=== PATIENT | female | born 1995 | race Caucasian/White ===

== ENCOUNTER 2017-03-18 14:39 | Emergency (ER) | payer BC ==
--- NOTE | 2017-03-18 15:50 | ED NURSING NOTES ---
Clinical Report - Nurses [facility] [address] [place] [address] 03/18/2017 14:42 Patient: PATRICK TERRY TRIAGE Triage time 14:50 Mar 18 2017. Acuity: LEVEL 3. Chief Complaint: (pt reports "getting my migraine at 0900" including n/v). Alert. SEPSIS SCREEN: Sepsis Screen. Negative (no infection suspected/documented). --14:54 Duong Rayo R.N. 14:50 03/18/17. BP: 130/65. HR: 67. RR: 15. O2 saturation: 100%. Temp: 97.7 F. Pain level now: 06/08. --14:54 Duong Rayo R.N. Weight: 64.4 kg stated. Height/Length: 66 inches Per Patient. BMI: 22.9. --14:53 Duong Rayo R.N. Medications Ocella Oral. --14:51 Duong Rayo R.N. Medication/allergy information source: the patient. --14:54 Duong Rayo R.N. Allergies None. --14:52 Duong Rayo R.N. History Arrived by private vehicle. Historian: patient. Accompanied by family. This started today. Onset. (0900). She has had nausea and vomiting. 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 PAST MEDICAL HX: Immunizations: up-to-date. Last normal menstrual period- March 04 2017. SOCIAL HX: Never smoker. Occasional alcohol use; consumes beer occasionally. No drug use. She has had contact with a sick individual. No infectious disease exposure. ABUSE ASSESSMENT: No report of abuse. SELF HARM ASSESSMENT: A self harm assessment was performed. The patient answered "no" to the question "Do you have thoughts of harming or killing yourself?". FALL RISK ASSESSMENT: Fall risk assessment completed. No fall risk identified. NUTRITIONAL RISK ASSESSMENT: The nutritional risk assessment revealed no deficiencies. FUNCTIONAL ASSESSMENT: Functional assessment: no impairments noted. LEARNING NEEDS ASSESSMENT: The learning needs assessment revealed no barriers. --14:54 Duong Rayo R.N. PROBLEMS: Migraine Headache. --14:52 Duong Rayo R.N. ADDITIONAL SURGERIES: Tonsillectomy. --14:52 Duong Rayo R.N. Interventions ID band on patient. To treatment room. --14:54 Duong Rayo R.N. PHYSICAL ASSESSMENT Ambulatory to room. Patient gowned. GENERAL / NEURO / PSYCH: Alert. Oriented X 4. Appears in pain. HEENT: Mucous membranes are pink. RESPIRATORY: Respirations not labored. CVS: Capillary refill less than 2 seconds. SKIN: Skin is warm and dry. --14:54 Duong Rayo R.N. NURSING PROGRESS NOTES Monitoring of patient in place. Patient gowned. Reassurance given. Patient identifiers checked. Call light placed in reach. Side rails up. Bed placed in lowest position. Brakes of bed on. Patient ready for evaluation- chart flagged. Patient waiting for evaluation. --14:55 Duong Rayo R.N. 15:10 03/18/2017 Site #1 started via IV in the right antecubital space with an 22g angiocath, with aseptic technique and good blood return; one attempt. Blood drawn: rainbow set. Labeled in the presence of the patient and sent to the lab. Saline lock flushed with 10 mL saline. --15:10 Sheriff Chavez R.N. 15:16 03/18/2017 Toradol IVP 30 mg given. via site #1. Allergies verified and confirmed 5 rights. IV patency established. IV site checked: no pain, redness, or swelling. IV flushed thoroughly pre- and post-medication administration. IVP given by RN. --15:26 Duong Rayo R.N. 15:16 03/18/2017 Reglan (Metoclopramide HCl) IVP 10 mg given. via site #1. Allergies verified and confirmed 5 rights. IV patency established. IV site checked: no pain, redness, or swelling. IV flushed thoroughly pre- and post-medication administration. IVP given by RN. --15:26 Duong Rayo R.N. 15:17 03/18/2017 Benadryl (DiphenhydrAMINE HCl) IVP 25 mg given. via site #1. Allergies verified, confirmed 5 rights and sedative warning given to the patient and patient's family. IV patency established. IV site checked: no pain, redness, or swelling. IV flushed thoroughly pre- and post-medication administration. IVP given by RN. --15:27 Duong Rayo R.N. DISPOSITION / DISCHARGE 16:16 03/18/17. Departure time: 1610. Condition at departure: improved and stable. No learning barriers present. Discharge instructions provided and reviewed with the patient and spouse. Reviewed medication(s) side effects, precautions, dosing and course information. Work note given. Patient verbalized understanding. Written instructions provided in Swedish. The patient was discharged by the nurse practitioner. She was discharged home and accompanied by spouse. She left the Emergency Department ambulatory and via private vehicle. Spouse driving. --16:16 Roya Martinez R.N. 16:14 03/18/17. BP: 104/68. HR: 81. RR: 14. O2 saturation: 100% on room air. Temp: 98.2 F (oral). Pain level now 2/10. --16:16 Roya Martinez R.N. Locked/Released at 03/18/2017 20:54 by Duong Rayo R.N.
--- NOTE | 2017-03-18 15:50 | ED CLINICAL REPORT ---
Clinical Report - Physicians/Mid Levels [facility] [address] [place] [address] 03/18/2017 14:42 [id number] Time Seen: 14:54; initial patient contact, initial documentation, patient care assumed. Arrived- By private vehicle. Historian- patient. HISTORY OF PRESENT ILLNESS Chief Complaint: HEADACHE and MIGRAINE HEADACHE. Is still present. This started today. It was abrupt in onset and has been constant. It is described as similar to previous headaches, "pain" and diffuse. Described as a global headache. Located in the frontal, left hemicranial, left parietal and left temporal region and region of the left eye. Located in the facial region. No neck pain. At its maximum, severity described as severe. When seen in the E.D., severity described as severe. Modifying factors: relieved by nothing. Not worsened by anything. The patient has had nausea and vomiting. The vomiting has occurred twice. No preceding symptoms, blurred vision, photophobia, numbness or weakness. No recent travel. Similar symptoms previously: Occasionally, as bad. Recent medical care: Not recently seen/assessed. REVIEW OF SYSTEMS No fever, sinus pressure, ear pain, sore throat or head injury. No chest pain, difficulty breathing or abdominal pain. All systems otherwise negative, except as recorded above. PAST HISTORY See nurses notes. PROBLEMS: Migraine Headache. --14:52 Duong Rayo, RAlyssaN. ADDITIONAL SURGERIES: Tonsillectomy. --14:52 Duong Rayo, R.Monserrat. SOCIAL HISTORY Never smoker. Occasional alcohol use. No drug use. No recent travel. Is a local resident. FAMILY HISTORY Negative. ADDITIONAL NOTES The nursing notes have been reviewed with agreement regarding the chief complaint, HPI, ROS, PMH and patient medications and allergies. PHYSICAL EXAM Vital Signs: 03/18/2017 14:50 BP: 130/65. HR: 67. RR: 15. O2 saturation: 100%. Temp: 97.7 F. Pain level now: 9/10. Have been reviewed as normal and appear to be correct. Appearance: Alert. No acute distress. Eyes: Pupils equal, round and reactive to light. Eyes normal inspection. ENT: Ears normal. Nose normal. Pharynx normal. Neck: Normal inspection. Neck supple. CVS: Normal heart rate and rhythm. Heart sounds normal. Pulses normal. Respiratory: No respiratory distress. Breath sounds normal. Abdomen: Soft and nontender. No organomegaly. Back: Normal inspection. Skin: Skin warm and dry. Normal skin color. No rash. Normal skin turgor. Extremities: Extremities exhibit normal ROM. No lower extremity edema. Neuro: Oriented X 3. Alert. Mood/affect normal. Speech normal. Cranial nerves normal (as tested). No cerebellar findings. No motor deficit. No sensory deficit. PROGRESS AND PROCEDURES Course of Care: 03/18/2017 16:14 BP: 104/68. HR: 81. RR: 14. O2 saturation: 100%. Temp: 98.2 F. Vital Signs: have been reviewed as normal and appear to be correct. Patient counseled in person regarding the patient's stable condition and diagnosis. Differential Diagnosis: I considered migraine, cluster headache, subarachnoid hemorrhage, intracranial bleed, vascular malformation, cerebral aneurysm, vascular dissection, vasculitis, temporal arteritis, encephalitis, brain abscess, influenza, viral syndrome, analgesic abuse, hypoglycemia and trigeminal neuralgia as a possible cause of headache in this patient. This is a partial list of diagnoses considered. Above considerations are based on history and reassessment. Differential diagnosis was discussed with patient. Disposition: Discharged home in good and improved condition (15:50). Condition: good and stable. CLINICAL IMPRESSION Acute migraine headache without aura- refractory to treatment. INSTRUCTIONS Warnings: GENERAL WARNINGS: Return or contact your physician immediately if your condition worsens or changes unexpectedly, if not improving as expected, or if other problems arise. SPECIFICALLY, return if you develop fever, vomiting, numbness, weakness, difficulty thinking, visual disturbances, fainting or extreme fatigue. Prescription Medications: Zofran 4 mg: Take 1 orally every six hours as needed for nausea/vomiting. Dispense ten (10). No refills. Substitution is permissible. Fioricet: Take 1-2 orally every 4 hours as needed for headache. Dispense twenty (20). No refills. Substitution is permissible. Follow-up: Follow up with your doctor in about two days even if well. Summary of care provided to patient. Understanding of the discharge instructions verbalized by patient. (Electronically signed by Jenna Flores A.R.N.P. 03/18/2017 22:05) Addenda for PATRICK TERRY VisitID: [id number] Date: 03/18/2017 03/18/2017 16:59 [facility], called in below RX per request RX for Zofran one PO every 6 hours prn #10 Fioricet, 1-2 every 4 hours as need for headache, #20 (Electronically signed by Kristopher Juarez R.N. - 03/18/2017 16:59)
--- NOTE | 2017-03-18 15:50 | ED ORDER SUMMARY ---
..... Patient: PATRICK TERRY OrderSheet [facility] VisitID: [id number] [place] [address] 22y, F Registration Date/Time: 03/18/2017 ORDER SHEET Weight: 64.4 kg (stated) Allergies: None GENERAL ORDERS: MEDICATION ORDERS: IV FLUIDS: Toradol IV 30 mg (NOW) (15:03/18/2017 HBivens A.R.N.P.) (15:26 KPage-Kuchan R.N.) Reglan IV 10 mg (NOW) (15:03/18/2017 HBivens A.R.N.P.) (15:26 KPage-Kuchan R.N.) Benadryl IV 25 mg (NOW) (15:03/18/2017 HBivens A.R.N.P.) (15:27 KPage-Kuchan R.N.) IV Saline Lock (15:03/18/2017 HBivens A.R.N.P.) (15:26 KPage-Kuchan R.N.) ORDER SHEET NOTES: [Electronically signed by Duong Rayo R.N. (20:54 03/18/2017)] [Electronically signed by Jenna Flores A.R.N.P. (22:05 03/18/2017)] [Electronically locked/signed by Duong Rayo R.N. (20:54 03/18/2017)]
--- NOTE | 2017-03-18 15:50 | ED NURSING NOTES ---
Clinical Report - Nurses [facility] [address] [place] [address] 03/18/2017 14:42 Patient: PATRICK TERRY TRIAGE Triage time 14:50 Mar 18 2017. Acuity: LEVEL 3. Chief Complaint: (pt reports "getting my migraine at 0900" including n/v). Alert. SEPSIS SCREEN: Sepsis Screen. Negative (no infection suspected/documented). --14:54 Duong Rayo R.N. 14:50 03/18/17. BP: 130/65. HR: 67. RR: 15. O2 saturation: 100%. Temp: 97.7 F. Pain level now: 06/08. --14:54 Duong Rayo R.N. Weight: 64.4 kg stated. Height/Length: 66 inches Per Patient. BMI: 22.9. --14:53 Duong Rayo R.N. Medications Ocella Oral. --14:51 Duong Rayo R.N. Medication/allergy information source: the patient. --14:54 Duong Rayo R.N. Allergies None. --14:52 Duong Rayo R.N. History Arrived by private vehicle. Historian: patient. Accompanied by family. This started today. Onset. (0900). She has had nausea and vomiting. 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 PAST MEDICAL HX: Immunizations: up-to-date. Last normal menstrual period- March 04 2017. SOCIAL HX: Never smoker. Occasional alcohol use; consumes beer occasionally. No drug use. She has had contact with a sick individual. No infectious disease exposure. ABUSE ASSESSMENT: No report of abuse. SELF HARM ASSESSMENT: A self harm assessment was performed. The patient answered "no" to the question "Do you have thoughts of harming or killing yourself?". FALL RISK ASSESSMENT: Fall risk assessment completed. No fall risk identified. NUTRITIONAL RISK ASSESSMENT: The nutritional risk assessment revealed no deficiencies. FUNCTIONAL ASSESSMENT: Functional assessment: no impairments noted. LEARNING NEEDS ASSESSMENT: The learning needs assessment revealed no barriers. --14:54 Duong Rayo R.N. PROBLEMS: Migraine Headache. --14:52 Duong Rayo R.N. ADDITIONAL SURGERIES: Tonsillectomy. --14:52 Duong Rayo R.N. Interventions ID band on patient. To treatment room. --14:54 Duong Rayo R.N. PHYSICAL ASSESSMENT Ambulatory to room. Patient gowned. GENERAL / NEURO / PSYCH: Alert. Oriented X 4. Appears in pain. HEENT: Mucous membranes are pink. RESPIRATORY: Respirations not labored. CVS: Capillary refill less than 2 seconds. SKIN: Skin is warm and dry. --14:54 Duong Rayo R.N. NURSING PROGRESS NOTES Monitoring of patient in place. Patient gowned. Reassurance given. Patient identifiers checked. Call light placed in reach. Side rails up. Bed placed in lowest position. Brakes of bed on. Patient ready for evaluation- chart flagged. Patient waiting for evaluation. --14:55 Duong Rayo R.N. 15:10 03/18/2017 Site #1 started via IV in the right antecubital space with an 22g angiocath, with aseptic technique and good blood return; one attempt. Blood drawn: rainbow set. Labeled in the presence of the patient and sent to the lab. Saline lock flushed with 10 mL saline. --15:10 Sheriff Chavez R.N. 15:16 03/18/2017 Toradol IVP 30 mg given. via site #1. Allergies verified and confirmed 5 rights. IV patency established. IV site checked: no pain, redness, or swelling. IV flushed thoroughly pre- and post-medication administration. IVP given by RN. --15:26 Duong Rayo R.N. 15:16 03/18/2017 Reglan (Metoclopramide HCl) IVP 10 mg given. via site #1. Allergies verified and confirmed 5 rights. IV patency established. IV site checked: no pain, redness, or swelling. IV flushed thoroughly pre- and post-medication administration. IVP given by RN. --15:26 Duong Rayo R.N. 15:17 03/18/2017 Benadryl (DiphenhydrAMINE HCl) IVP 25 mg given. via site #1. Allergies verified, confirmed 5 rights and sedative warning given to the patient and patient's family. IV patency established. IV site checked: no pain, redness, or swelling. IV flushed thoroughly pre- and post-medication administration. IVP given by RN. --15:27 Duong Rayo R.N. DISPOSITION / DISCHARGE 16:16 03/18/17. Departure time: 1610. Condition at departure: improved and stable. No learning barriers present. Discharge instructions provided and reviewed with the patient and spouse. Reviewed medication(s) side effects, precautions, dosing and course information. Work note given. Patient verbalized understanding. Written instructions provided in Romanian. The patient was discharged by the nurse practitioner. She was discharged home and accompanied by spouse. She left the Emergency Department ambulatory and via private vehicle. Spouse driving. --16:16 Roya Martinez R.N. 16:14 03/18/17. BP: 104/68. HR: 81. RR: 14. O2 saturation: 100% on room air. Temp: 98.2 F (oral). Pain level now 2/10. --16:16 Roya Martinez R.N. Locked/Released at 03/18/2017 20:54 by Duong Rayo R.N.
--- NOTE | 2017-03-18 15:50 | ED ORDER SUMMARY ---
..... Patient: PATRICK TERRY OrderSheet [facility] VisitID: [id number] [place] [address] 22y, F Registration Date/Time: 03/18/2017 ORDER SHEET Weight: 64.4 kg (stated) Allergies: None GENERAL ORDERS: MEDICATION ORDERS: IV FLUIDS: Toradol IV 30 mg (NOW) (15:03/18/2017 HBivens A.R.N.P.) (15:26 KPage-Kuchan R.N.) Reglan IV 10 mg (NOW) (15:03/18/2017 HBivens A.R.N.P.) (15:26 KPage-Kuchan R.N.) Benadryl IV 25 mg (NOW) (15:03/18/2017 HBivens A.R.N.P.) (15:27 KPage-Kuchan R.N.) IV Saline Lock (15:03/18/2017 HBivens A.R.N.P.) (15:26 KPage-Kuchan R.N.) ORDER SHEET NOTES: [Electronically signed by Duong Rayo R.N. (20:54 03/18/2017)] [Electronically signed by Jenna Flores A.R.N.P. (22:05 03/18/2017)] [Electronically locked/signed by Duong Rayo R.N. (20:54 03/18/2017)]
--- NOTE | 2017-03-18 15:50 | ED CLINICAL REPORT ---
Clinical Report - Physicians/Mid Levels [facility] [address] [place] [address] 03/18/2017 14:42 [id number] Time Seen: 14:54; initial patient contact, initial documentation, patient care assumed. Arrived- By private vehicle. Historian- patient. HISTORY OF PRESENT ILLNESS Chief Complaint: HEADACHE and MIGRAINE HEADACHE. Is still present. This started today. It was abrupt in onset and has been constant. It is described as similar to previous headaches, "pain" and diffuse. Described as a global headache. Located in the frontal, left hemicranial, left parietal and left temporal region and region of the left eye. Located in the facial region. No neck pain. At its maximum, severity described as severe. When seen in the E.D., severity described as severe. Modifying factors: relieved by nothing. Not worsened by anything. The patient has had nausea and vomiting. The vomiting has occurred twice. No preceding symptoms, blurred vision, photophobia, numbness or weakness. No recent travel. Similar symptoms previously: Occasionally, as bad. Recent medical care: Not recently seen/assessed. REVIEW OF SYSTEMS No fever, sinus pressure, ear pain, sore throat or head injury. No chest pain, difficulty breathing or abdominal pain. All systems otherwise negative, except as recorded above. PAST HISTORY See nurses notes. PROBLEMS: Migraine Headache. --14:52 Duong Rayo, RAlyssaN. ADDITIONAL SURGERIES: Tonsillectomy. --14:52 Duong Rayo, R.Monserrat. SOCIAL HISTORY Never smoker. Occasional alcohol use. No drug use. No recent travel. Is a local resident. FAMILY HISTORY Negative. ADDITIONAL NOTES The nursing notes have been reviewed with agreement regarding the chief complaint, HPI, ROS, PMH and patient medications and allergies. PHYSICAL EXAM Vital Signs: 03/18/2017 14:50 BP: 130/65. HR: 67. RR: 15. O2 saturation: 100%. Temp: 97.7 F. Pain level now: 9/10. Have been reviewed as normal and appear to be correct. Appearance: Alert. No acute distress. Eyes: Pupils equal, round and reactive to light. Eyes normal inspection. ENT: Ears normal. Nose normal. Pharynx normal. Neck: Normal inspection. Neck supple. CVS: Normal heart rate and rhythm. Heart sounds normal. Pulses normal. Respiratory: No respiratory distress. Breath sounds normal. Abdomen: Soft and nontender. No organomegaly. Back: Normal inspection. Skin: Skin warm and dry. Normal skin color. No rash. Normal skin turgor. Extremities: Extremities exhibit normal ROM. No lower extremity edema. Neuro: Oriented X 3. Alert. Mood/affect normal. Speech normal. Cranial nerves normal (as tested). No cerebellar findings. No motor deficit. No sensory deficit. PROGRESS AND PROCEDURES Course of Care: 03/18/2017 16:14 BP: 104/68. HR: 81. RR: 14. O2 saturation: 100%. Temp: 98.2 F. Vital Signs: have been reviewed as normal and appear to be correct. Patient counseled in person regarding the patient's stable condition and diagnosis. Differential Diagnosis: I considered migraine, cluster headache, subarachnoid hemorrhage, intracranial bleed, vascular malformation, cerebral aneurysm, vascular dissection, vasculitis, temporal arteritis, encephalitis, brain abscess, influenza, viral syndrome, analgesic abuse, hypoglycemia and trigeminal neuralgia as a possible cause of headache in this patient. This is a partial list of diagnoses considered. Above considerations are based on history and reassessment. Differential diagnosis was discussed with patient. Disposition: Discharged home in good and improved condition (15:50). Condition: good and stable. CLINICAL IMPRESSION Acute migraine headache without aura- refractory to treatment. INSTRUCTIONS Warnings: GENERAL WARNINGS: Return or contact your physician immediately if your condition worsens or changes unexpectedly, if not improving as expected, or if other problems arise. SPECIFICALLY, return if you develop fever, vomiting, numbness, weakness, difficulty thinking, visual disturbances, fainting or extreme fatigue. Prescription Medications: Zofran 4 mg: Take 1 orally every six hours as needed for nausea/vomiting. Dispense ten (10). No refills. Substitution is permissible. Fioricet: Take 1-2 orally every 4 hours as needed for headache. Dispense twenty (20). No refills. Substitution is permissible. Follow-up: Follow up with your doctor in about two days even if well. Summary of care provided to patient. Understanding of the discharge instructions verbalized by patient. (Electronically signed by Jenna Flores A.R.N.P. 03/18/2017 22:05) Addenda for PATRICK TERRY VisitID: [id number] Date: 03/18/2017 03/18/2017 16:59 [facility] called in below RX per request RX for Zofran one PO every 6 hours prn #10 Fioricet, 1-2 every 4 hours as need for headache, #20 (Electronically signed by Kristopher Juarez R.N. - 03/18/2017 16:59)
--- NOTE | 2017-03-18 22:06 | ED MAR SUMMARY ---
..... Medication Administration Record [facility] [address] [place] [address] Patient: PATRICK TERRY Visit ID: [id number] 22y, F Weight: 64.4 kg Height/Length: 66 in BMI: 22.9 ALLERGIES: None Given 15:16 03/18/2017 Duong Rayo R.N. Medication Administered: TORADOL [IVP], Dose: 30 mg IVP, Site: #1 right AC. Medication Ordered: Toradol IV 30 mg (NOW). Given 15:03/18/2017 Duong Rayo R.N. Medication Administered: REGLAN [IVP] (METOCLOPRAMIDE HCL), Dose: 10 mg IVP, Site: #1 right AC. Medication Ordered: Reglan IV 10 mg (NOW). Given 15:03/18/2017 Duong Rayo RLexii Medication Administered: BENADRYL [IVP] (DIPHENHYDRAMINE HCL), Dose: 25 mg IVP, Site: #1 right AC. Medication Ordered: Benadryl IV 25 mg (NOW).
--- NOTE | 2017-03-18 22:06 | ED DISCHARGE INSTRUCTIONS ---
Patient: PATRICK TERRY General Instructions [facility] VisitID: [id number] [place] [address] 22y, F Registration Date/Time: 03/18/2017 Acute migraine headache without aura- refractory to treatment. INSTRUCTIONS Warnings: GENERAL WARNINGS: Return or contact your physician immediately if your condition worsens or changes unexpectedly, if not improving as expected, or if other problems arise. SPECIFICALLY, return if you develop fever, vomiting, numbness, weakness, difficulty thinking, visual disturbances, fainting or extreme fatigue. Prescription Medications: Zofran 4 mg: Take 1 orally every six hours as needed for nausea/vomiting. Dispense ten (10). No refills. Substitution is permissible. Fioricet: Take 1-2 orally every 4 hours as needed for headache. Dispense twenty (20). No refills. Substitution is permissible. Follow-up: Follow up with your doctor in about two days even if well. Summary of care provided to patient. Understanding of the discharge instructions verbalized by patient. ADDITIONAL INFORMATION Migraine Headache Migraine headaches are related to changes in blood flow to the brain. This causes throbbing or constant pain on one or both sides of the head. The pain may last from a few hours to several days. There is usually nausea, vomiting, sensitivity to light and sound, and blurred vision. A migraine attack may be triggered by emotional stress, hormone changes during the menstrual cycle, oral contraceptives, alcohol use, certain foods containing tyramine, eye strain, weather changes, missing meals, or too little or too much sleep. Home Care For This Headache: 1) If you were given pain medicine for this headache, do not drive yourself home . Arrange for a ride, instead. When you get home, try to sleep. You should feel much better when you wake up. 2) Migraine headaches may improve with an ice pack on the forehead or at the base of the skull. Heat to the back of your neck may relieve any neck spasm. 3) Drink only clear liquids or eat a very light diet to avoid nausea/vomiting until symptoms improve. Preventing Future Headaches: 1) Pay attention to those factors that seem to trigger your headache. Try to avoid them when you can. If you have frequent headaches, it is useful to keep a diary of what you were doing, feeling or eating in the hours before each attack. Show this to your doctor to help find the cause of your headaches. a) If you feel that stress is a factor in your headaches, look at the sources of stress in your life. Find ways to release the build-up of those stresses by using regular exercise, relaxation methods (yoga, meditation), bio-feedback or simply taking time-out for yourself. For more information about this, consult your doctor or go to a local bookstore and review books and tapes on this subject. b) Tyramine is a substance present in the following foods : chocolate, yogurt, all cheeses except cottage cheese and cream cheese. smoked or pickled fish and meat (including de luna, caviar, bologna, pepperoni, salami), liver, avocados, bananas, figs, raisins, and red wine. Be aware that these foods may trigger a migraine in some persons. Try taking these foods out of your diet for 1-2 months to see if this reduces headache frequency. Treating Future Attacks: 1) At the first sign of a headache, take time out if possible. Find a quiet, dark, comfortable place to sit or lie down. Let yourself relax or sleep. 2) An ice pack on the forehead or area of greatest pain may help. If you are having muscle spasm and tightness of the neck, a heating pad and massage to this area may be helpful. 3) If you have been prescribed a medicine to stop a migraine headache, use this at the very first warning sign of the headache (aura or initial pain) for best results. Follow Up with your doctor if the headache is not better within the next 24 hours. If you have frequent headaches you should discuss a treatment plan with your primary care doctor. Ask if you can have medicine to take at home the next time you get a bad headache. Poorly controlled chronic headaches may require a referral to a neurologist (headache specialist). Get Prompt Medical Attention if any of the following occur: Your head pain gets worse, or does not improve within 24 hours Repeated vomiting (cant keep liquids down) Sinus or ear or throat pain (not already reported) Fever of 100.4 F (38 C) or higher, or as directed by your healthcare provider Stiff neck Extreme drowsiness, confusion or fainting Dizziness, vertigo (dizziness with spinning sensation) Weakness of an arm or leg or one side of the face Difficulty with speech or vision Ondansetron Oral disintegrating tablet What is this medicine? ONDANSETRON (on DEEPALI se dann) is used to treat nausea and vomiting caused by chemotherapy. It is also used to prevent or treat nausea and vomiting after surgery. How should I use this medicine? These tablets are made to dissolve in the mouth. Do not try to push the tablet through the foil backing. With dry hands, peel away the foil backing and gently remove the tablet. Place the tablet in the mouth and allow it to dissolve, then swallow. While you may take these tablets with water, it is not necessary to do so. Talk to your legal internship regarding the use of this medicine in children. Special care may be needed. What side effects may I notice from receiving this medicine? Side effects that you should report to your doctor or health urgent care physician assistant as soon as possible: allergic reactions like skin rash, itching or hives, swelling of the face, lips, or tongue breathing problems dizziness fast or irregular heartbeat feeling faint or lightheaded, falls fever and chills swelling of the hands and feet tightness in the chest Side effects that usually do not require medical attention (report to your doctor or health urgent care physician assistant if they continue or are bothersome): constipation or diarrhea headache What may interact with this medicine? Do not take this medicine with any of the following medications: -apomorphine -cisapride -dofetilide -dronedarone -pimozide -thioridazine -ziprasidone This medicine may also interact with the following medications: -carbamazepine -phenytoin -rifampicin -tramadol -other medicines that prolong the QT interval (cause an abnormal heart rhythm) What if I miss a dose? If you miss a dose, take it as soon as you can. If it is almost time for your next dose, take only that dose. Do not take double or extra doses. Where should I keep my medicine? Keep out of the reach of children. Store between 2 and 30 degrees C (36 and 86 degrees F). Throw away any unused medicine after the expiration date. What should I tell my health care provider before I take this medicine? They need to know if you have any of these conditions: heart disease history of irregular heartbeat liver disease low levels of magnesium or potassium in the blood an unusual or allergic reaction to ondansetron, granisetron, other medicines, foods, dyes, or preservatives or trying to get breast-feeding What should I watch for while using this medicine? Check with your doctor or health urgent care physician assistant as soon as you can if you have any sign of an allergic reaction. Butalbital, Acetaminophen, Caffeine Oral tablet What is this medicine? ACETAMINOPHEN; BUTALBITAL; CAFFEINE (a set a NANCY luca fen; byoo JAMA bi jama; KAF een) is a pain reliever. It is used to treat tension headaches. How should I use this medicine? Take this medicine by mouth with a full glass of water. Follow the directions on the prescription label. If the medicine upsets your stomach, take the medicine with food or milk. Do not take more than you are told to take. Talk to your legal internship regarding the use of this medicine in children. Special care may be needed. What side effects may I notice from receiving this medicine? Side effects that you should report to your doctor or health urgent care physician assistant as soon as possible: allergic reactions like skin rash, itching or hives, swelling of the face, lips, or tongue breathing problems confusion feeling faint or lightheaded, falls redness, blistering, peeling or loosening of the skin, including inside the mouth seizure stomach pain yellowing of the eyes or skin Side effects that usually do not require medical attention (report to your doctor or health urgent care physician assistant if they continue or are bothersome): constipation nausea, vomiting What may interact with this medicine? alcohol or medicines that contain alcohol antidepressants, especially MAOIs like isocarboxazid, phenelzine, tranylcypromine, and selegiline antihistamines benzodiazepines carbamazepine isoniazid medicines for pain like pentazocine, buprenorphine, butorphanol, nalbuphine, tramadol, and propoxyphene muscle relaxants naltrexone phenobarbital, phenytoin, and fosphenytoin phenothiazines like perphenazine, thioridazine, chlorpromazine, mesoridazine, fluphenazine, prochlorperazine, promazine, and trifluoperazine voriconazole What if I miss a dose? If you miss a dose, take it as soon as you can. If it is almost time for your next dose, take only that dose. Do not take double or extra doses. Where should I keep my medicine? Keep out of the reach of children. This medicine can be abused. Keep your medicine in a safe place to protect it from theft. Do not share this medicine with anyone. Selling or giving away this medicine is dangerous and against the law. Store at room temperature between 15 and 30 degrees C (59 and 86 degrees F). Keep container tightly closed. Protect from light. Throw away any unused medicine after the expiration date. What should I tell my health care provider before I take this medicine? They need to know if you have any of these conditions: drink more than 3 alcohol-containing drinks per day drug abuse or addiction heart or circulation problems kidney disease or problems going to the bathroom liver disease lung disease, asthma, or breathing problems porphyria an unusual or allergic reaction to acetaminophen, butalbital or other barbiturates, caffeine, other medicines, foods, dyes, or preservatives or trying to get breast-feeding What should I watch for while using this medicine? Tell your doctor or health urgent care physician assistant if your pain does not go away, if it gets worse, or if you have new or a different type of pain. You may develop tolerance to the medicine. Tolerance means that you will need a higher dose of the medicine for pain relief. Tolerance is normal and is expected if you take the medicine for a long time. Do not suddenly stop taking your medicine because you may develop a severe reaction. Your body becomes used to the medicine. This does NOT mean you are addicted. Addiction is a behavior related to getting and using a drug for a non-medical reason. If you have pain, you have a medical reason to take pain medicine. Your doctor will tell you how much medicine to take. If your doctor wants you to stop the medicine, the dose will be slowly lowered over time to avoid any side effects. You may get drowsy or dizzy when you first start taking the medicine or change doses. Do not drive, use machinery, or do anything that may be dangerous until you know how the medicine affects you. Stand or sit up slowly. Do not take other medicines that contain acetaminophen with this medicine. Always read labels carefully. If you have questions, ask your doctor or pharmacist. If you take too much acetaminophen get medical help right away. Too much acetaminophen can be very dangerous and cause liver damage. Even if you do not have symptoms, it is important to get help right away. You have been given the following additional information: Headache, Migraine (Classical) Ondansetron Oral disintegrating tablet Butalbital, Acetaminophen, Caffeine Oral tablet (Electronically signed by Jenna Flores A.R.N.P. 03/18/2017 22:05)
--- NOTE | 2017-03-18 22:06 | ED MED RECONCILIATION SUMMARY ---
Patient: PATRICK TERRY Medication Reconciliation Report [facility] VisitID: [id number] [place] [address] 22y, F Registration Date/Time: 03/18/2017 Weight: 64.4 kg Height/Length: 66 in. BMI: 22.9 ALLERGIES: None The patient's Home Medications are listed below: THE FOLLOWING MEDICATIONS NEED TO BE RECONCILED: Ocella Oral The source(s) of the original Home Medication information: patient The following Medications were given to the patient in the Emergency Department: Toradol [IVP] IVP 30 mg, administered: 03/18/2017 3:16:00 PM Reglan [IVP] IVP 10 mg, administered: 03/18/2017 3:16:00 PM Benadryl [IVP] IVP 25 mg, administered: 03/18/2017 3:17:00 PM The following Medications were prescribed to the patient: Zofran 4 mg: Take 1 orally every six hours as needed for nausea/vomiting. Dispense ten (10). No refills. Substitution is permissible. -- Jenna Flores, Kali.R.N.P. Fioricet: Take 1-2 orally every 4 hours as needed for headache. Dispense twenty (20). No refills. Substitution is permissible. -- Jenna Flores A.R.N.P.
--- NOTE | 2017-03-18 22:06 | ED MED RECONCILIATION SUMMARY ---
Patient: PATRICK TERRY Medication Reconciliation Report [facility] VisitID: [id number] [place] [address] 22y, F Registration Date/Time: 03/18/2017 Weight: 64.4 kg Height/Length: 66 in. BMI: 22.9 ALLERGIES: None The patient's Home Medications are listed below: THE FOLLOWING MEDICATIONS NEED TO BE RECONCILED: Ocella Oral The source(s) of the original Home Medication information: patient The following Medications were given to the patient in the Emergency Department: Toradol [IVP] IVP 30 mg, administered: 03/18/2017 3:16:00 PM Reglan [IVP] IVP 10 mg, administered: 03/18/2017 3:16:00 PM Benadryl [IVP] IVP 25 mg, administered: 03/18/2017 3:17:00 PM The following Medications were prescribed to the patient: Zofran 4 mg: Take 1 orally every six hours as needed for nausea/vomiting. Dispense ten (10). No refills. Substitution is permissible. -- Jenna Flores, Kali.R.N.P. Fioricet: Take 1-2 orally every 4 hours as needed for headache. Dispense twenty (20). No refills. Substitution is permissible. -- Jenna Flores A.R.N.P.
--- NOTE | 2017-03-18 22:06 | ED MAR SUMMARY ---
..... Medication Administration Record [facility] [address] [place] [address] Patient: PATRICK TERRY Visit ID: [id number] 22y, F Weight: 64.4 kg Height/Length: 66 in BMI: 22.9 ALLERGIES: None Given 15:16 03/18/2017 Duong Rayo R.N. Medication Administered: TORADOL [IVP], Dose: 30 mg IVP, Site: #1 right AC. Medication Ordered: Toradol IV 30 mg (NOW). Given 15:03/18/2017 Duong Rayo R.N. Medication Administered: REGLAN [IVP] (METOCLOPRAMIDE HCL), Dose: 10 mg IVP, Site: #1 right AC. Medication Ordered: Reglan IV 10 mg (NOW). Given 15:03/18/2017 Duong Rayo RLexii Medication Administered: BENADRYL [IVP] (DIPHENHYDRAMINE HCL), Dose: 25 mg IVP, Site: #1 right AC. Medication Ordered: Benadryl IV 25 mg (NOW).
== END 2017-03-18 16:10 | disposition home or self-care (01) ==
LOC: ED SRH 14:39
DX: G43.019 Migraine without aura, intractable, without status migrainosus (principal)